=== PATIENT | female | born 1950 | race Caucasian/White ===

== ENCOUNTER → 2020-02-05 | Outpatient (CLI) | payer MEDICARE ==
[~2020-02-05] MED LIST: ACET-1600 PO; ASCO10004 PO; FURO-93 PO; MV-M1TAB16 PO; OLME40TA12 PO; TIZA4CAP PO
== END | disposition home or self-care (01) ==
LOC: STAR 12:22
PROVIDERS: ATTEND Orthopaedic Surgery
DX: Z01.818 Encounter for other preprocedural examination (principal); M16.12 Unilateral primary osteoarthritis, left hip; M25.552 Pain in left hip
CPT/HCPCS: 36415; 87081; 87806; 93005; G0475

== ENCOUNTER 2020-02-09 08:16 | Observation (INO) | payer MEDICARE ==
[~2020-02-09] VITALS: Ht 171.4 cm; Wt 83.0 kg
[~2020-02-09 08:16] MED LIST changes: +ASCO100018 PO; -ASCO10004 PO; +EPINEPHRINE 1 MG/ML, 1ML ONE; +KETOROLAC 60 MG/2 ML ONE; +SODIUM CHLORIDE 0.9% 50 ML ONE; +TRANEXAMIC ACID 100 MG/ML, 10ML ONE
[2020-02-09] MEDS ORDERED: CHLORHEXIDINE 15 ML UDC MM STA (08:22)
[2020-02-09] MEDS ORDERED: LACTATED RINGERS 1,000 ML IV SCH (09:00)
[2020-02-09] MEDS ORDERED: ACETAMINOPHEN 500 MG TABLET PO ONE (09:00)
[2020-02-09] MEDS ORDERED: GABAPENTIN 300 MG CAPSULE PO ONE (09:00)
[2020-02-09] MEDS ORDERED: MIDAZOLAM 1 MG/ML, 2ML ONE (10:13)
[2020-02-09] MEDS ORDERED: FENTANYL PF 250 MCG/5ML ONE (10:13)
[2020-02-09] MEDS ORDERED: ROPIvacaine/PF 0.2%, 20 ML ONE (10:14)
[2020-02-09] MEDS ORDERED: POTASSIUM CHLORIDE 20 MEQ in D5%-0.45% NACL 1,000 ML IV SCH (11:20)
[2020-02-09] MEDS ORDERED: SENNA/DOCUSATE TABLET PO PRN (11:30)
[2020-02-09] MEDS ORDERED: POLYETHYLENE GLYCOL 17 GM PACKET PO PRN (11:30)
[2020-02-09] MEDS ORDERED: DIPHENHYDRAMINE 25 MG CAPSULE PO PRN (11:30)
[2020-02-09] MEDS ORDERED: ONDANSETRON 4 MG TABLET PO PRN (11:30)
[2020-02-09] MEDS ORDERED: ALUMINUM/MAG/SIMETHICONE 30 ML UDC PO PRN (11:30)
[2020-02-09] MEDS ORDERED: DEXAMETHASONE 4 MG/ML, 1ML IVPush SCH (11:30)
[2020-02-09] MEDS ORDERED: TEMAZEPAM 15 MG CAPSULE PO PRN (11:30)
[2020-02-09] MEDS ORDERED: ONDANSETRON 2MG/ML, 2ML IVPush PRN ×2 (11:30→12:30)
[2020-02-09] MEDS ORDERED: HYDROmorphone 1 MG/ML, 1ML INJ IVPush PRN ×2 (11:30→12:30)
[2020-02-09] MEDS ORDERED: MAGNESIUM HYDROXIDE 8%, 30ML UDC PO PRN (11:30)
[2020-02-09] MEDS ORDERED: TRANEXAMIC ACID 1,000 MG in SODIUM CHLORIDE 0.9% 100 ML IVPB ONE (11:30)
[2020-02-09] MEDS ORDERED: ACETAMINOPHEN 650 MG/20.3 ML UDC PO PRN (11:30)
[2020-02-09] MEDS ORDERED: DIAZEPAM 5 MG TABLET PO PRN (11:30)
[2020-02-09] MEDS ORDERED: OXYcodone IR 5MG TABLET PO PRN (11:30)
[2020-02-09] MEDS ORDERED: DIPHENHYDRAMINE 50 MG/ML, 1ML IVPush PRN ×2 (11:30→12:30)
[2020-02-09] MEDS ORDERED: ONDANSETRON 2MG/ML, 2ML ONE (11:31)
[2020-02-09] MEDS ORDERED: GLYCOPYRROLATE 0.2MG/1ML, 5ML ONE (11:31)
[2020-02-09] MEDS ORDERED: ROCURONIUM 10MG/ML,5ML ONE (11:31)
[2020-02-09] MEDS ORDERED: hydrALAzine 20 MG/ML, 1ML ONE (11:31)
[2020-02-09] MEDS ORDERED: DEXAMETHASONE 4 MG/ML, 1ML ONE (11:31)
[2020-02-09] MEDS ORDERED: PROPOFOL 10 MG/ML, 20ML ONE (11:31)
[2020-02-09] MEDS ORDERED: CEFAZOLIN 1,000 MG ONE (11:31)
[2020-02-09] MEDS ORDERED: NEOSTIGMINE 1 MG/ML, 10ML ONE (11:31)
[2020-02-09] MEDS ORDERED: LIDOCAINE-MPF 2% ,5ML ONE (11:31)
[2020-02-09] MEDS ORDERED: MEPERIDINE/PF 25MG/0.5ML IVPush PRN (12:30)
[2020-02-09] MEDS ORDERED: LABETALOL 5MG/ML, 20ML IV PRN (12:30)
[2020-02-09] MEDS ORDERED: OXYcodone 5 MG/5 ML ORAL.SOL UDC PO PRN (12:30)
[2020-02-09] MEDS ORDERED: ACETAMINOPHEN 325 MG TABLET PO PRN (12:30)
[2020-02-09] MEDS ORDERED: HALOPERIDOL 5 MG/ML IV PRN (12:30)
[2020-02-09] MEDS ORDERED: hydrALAzine 20 MG/ML, 1ML IV PRN (12:30)
[2020-02-09] MEDS ORDERED: DIAZEPAM 5 MG/ML, 2ML IVPush PRN (12:30)
[2020-02-09] MEDS ORDERED: FENTANYL PF 100 MCG/2ML ONE ×2 (13:06→13:28)
[2020-02-09] MEDS ORDERED: OXYcodone 5 MG/5 ML ORAL.SOL UDC ONE (13:07)
[2020-02-09] MEDS: FENTANYL PF 100 MCG/2ML IV PRN ×3 (13:20→13:30)
[2020-02-09] MEDS ORDERED: CEFAZOLIN PMX 1GM/50ML 50 ML IVPB SCH (14:49)
[2020-02-09] MEDS ORDERED: TIZANIDINE 4 MG MC SCH (15:30)
[2020-02-09] MEDS ORDERED: LOSARTAN 100 MG TAB PO SCH (16:00)
[2020-02-09] MEDS ORDERED: FUROSEMIDE 20 MG TABLET PO SCH (16:00)
[2020-02-09 17:06] VITALS: BP 134/86
[2020-02-09] MEDS ORDERED: DOCUSATE 100 MG CAPSULE PO SCH (21:00)
[2020-02-10] MEDS ORDERED: TAMSULOSIN 0.4 MG CAP.ER.24H PO SCH (09:00)
[2020-02-10] MEDS ORDERED: RIVAROXABAN 10 MG TABLET PO SCH (09:00)
== END 2020-02-09 17:50 | disposition home or self-care (01) ==
LOC: OUT 08:16 → ORIP 11:20 → 4NE 14:22
PROVIDERS: ADMIT Orthopaedic Surgery; ATTEND Orthopaedic Surgery
DX: Z03.818 Encounter for observation for suspected exposure to other biological agents ruled out (principal); M16.32 Unilateral osteoarthritis resulting from hip dysplasia, left hip; M87.9 Osteonecrosis, unspecified; G57.92 Unspecified mononeuropathy of left lower limb; I10 Essential (primary) hypertension; K21.9 Gastro-esophageal reflux disease without esophagitis; Z85.038 Personal history of other malignant neoplasm of large intestine; Z87.891 Personal history of nicotine dependence; Z88.0 Allergy status to penicillin; Z79.899 Other long term (current) drug therapy; Z91.040 Latex allergy status; Z85.828 Personal history of other malignant neoplasm of skin
CPT/HCPCS: 27130; 36415; 72170; 86850; 86900; 87635; 96374; 97162; C1713; C1776; G0378; J0171; J0360; J0690; J1100; J1200; J1885; J2250; J2405; J2704; J2710; J2795; J3010; J3490; J7120